=== PATIENT | female | born 1965 | race Caucasian/White ===

== ENCOUNTER 2018-03-21 07:53 | Outpatient (CLI) | payer BC ==
[~2018-03-21] VITALS: Ht 162.6 cm; Wt 52.6 kg
[2018-03-21] MEDS ORDERED: CHOL10003 PO (08:42)
[2018-03-21] MEDS ORDERED: [UNRECOGNIZED DRUG - CODE] PO (08:42)
[2018-03-21] MEDS ORDERED: ARIP10TA9 PO (08:46)
[2018-03-21] MEDS ORDERED: GINK120C PO (08:46)
[2018-03-21] MEDS ORDERED: OMEG-44 PO (08:46)
[2018-03-21] MEDS ORDERED: NABU500T PO (08:46)
[2018-03-21] MEDS ORDERED: LIDOCAINE WITH 8.4% SOD BICARB 3 ML DISP.SYRIN. ONE (08:47)
[2018-03-21] MEDS ORDERED: ESOM40CA47 PO (08:54)
[2018-03-21] MEDS ORDERED: ONDA4SOL PO (08:54)
[2018-03-21] MEDS ORDERED: BLAC200C PO (08:54)
[2018-03-21] MEDS ORDERED: SERT100T PO (08:54)
[2018-03-21 09:02] VITALS: BP 131/71
[2018-03-21] MEDS ORDERED: LIDOCAINE WITH 8.4% SOD BICARB 3 ML DISP.SYRIN. IJ ONE (10:00)
--- NOTE | 2018-03-21 10:47 | NUR ---
discharge instructions reviewed with pt. Pt discharged to home with family.
--- NOTE | 2018-03-22 12:26 | RAD ---
Exam: Fluoroscopic and ultrasound guided left upper extremity midline placement 03/22/2018 12:20 PM .Indication: ATAXIA PORPHYRINE DISORDER Technique: Informed oral and written consent were obtained. The right upper extremity was prepped and draped using sterile barrier technique. All elements of maximal sterile barrier technique including the use of a cap, mask, sterile gown, sterile gloves, large sterile sheet, appropriate hand hygiene, and 2% chlorhexidine for cutaneous antisepsis (or acceptable alternative antiseptic per current guidelines) were followed for this procedure.. Real-time ultrasound demonstrated a patent left cephalic vein. Left upper extremity was prepped and draped in usual sterile fashion. 1% lidocaine used for local anesthesia. Using real-time ultrasound guidance the access needle percutaneously punctured the selected vein. Reference ultrasound images were saved to the medical record. A guidewire was advanced through the needle comment but would not advance beyond the expected region of the left subclavian vein. The aortic position was called, and decision to place a midline made. And a peel-away sheath placed. The catheter was cut to length and inserted through the peel-away sheath. The wire and sheath were removed, and the catheter secured in place, and a sterile dressing was applied. Catheter was found to flush and aspirate normally. No immediate complications are identified. FLUORO TIME: 6.1 MIN Dose area product: 4 Gycm2 Impression: Ultrasound and fluoroscopically guided placement of a left upper extremity midline
== END 2018-03-21 10:49 | disposition home or self-care (01) ==
LOC: INTRAD 07:53
PROVIDERS: ATTEND General Practice
DX: E80.29 Other porphyria (principal); Z88.2 Allergy status to sulfonamides; Z88.5 Allergy status to narcotic agent; Z88.1 Allergy status to other antibiotic agents; Z88.6 Allergy status to analgesic agent; Z88.8 Allergy status to other drugs, medicaments and biological substances
CPT/HCPCS: 36569; 76937; 77001; C1751; C1769; C1892

== ENCOUNTER 2018-03-29 19:10 | Emergency (ER) | payer BC ==
[~2018-03-29] VITALS: Ht 162.6 cm; Wt 55.8 kg
[~2018-03-29 19:10] MED LIST: ARIP10TA9 PO; BLAC200C PO; CHOL10003 PO; ESOM40CA47 PO; GINK120C PO; NABU500T PO; OMEG-44 PO; ONDA4SOL PO; SERT100T PO; [UNRECOGNIZED DRUG - CODE] PO
--- NOTE | 2018-03-29 20:05 | PHYS DOC ---
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 She noticed some hardening of the tissue that has gradually progressed. It wasn't until this evening that she noted the redness which prompted them to come to ED. She denies any pain or tenderness to the area, fevers, chills, chest pain, shortness of breath. Review of Systems Review of Systems Constitutional: Denies fever or chills [] HENT: Denies nasal congestion or sore throat [] Respiratory: Denies cough or shortness of breath [] Cardiovascular: No chest pain, palpitations [] GI: Denies abdominal pain, nausea, vomiting, diarrhea [] : Denies dysuria or hematuria [] Musculoskeletal: Denies back pain or joint pain [] Integument:reports erythema and firmness around midline site in left upper arm[] Complete systems were reviewed and found to be within normal limits, except as documented in this note. Current Medications Current Medications Current Medications Medications (Trade) Dose Ordered Sig/Gold Start Time Stop Time Status Last Admin Dose Admin Cephalexin HCl (Keflex) 500 mg 1X ONCE 03/29/18 23:45 03/29/18 23:46 DC 03/30/18 00:54 500 MG Rivaroxaban (Xarelto) 15 mg 1X ONCE 03/29/18 23:45 03/29/18 23:46 DC 03/29/18 23:52 15 MG Sodium Chloride 1,000 ml @ 1,000 mls/hr 1X ONCE 03/29/18 20:15 03/29/18 21:14 DC 03/29/18 21:36 1,000 MLS/HR Allergies Allergies Allergies Coded Allergies Type Severity Reaction Last Updated Verified Sulfa (Sulfonamide Antibiotics) Allergy Unknown 03/21/18 Yes acetylcysteine Allergy Unknown 03/21/18 Yes adhesive Allergy Unknown 03/21/18 Yes amitriptyline Allergy Unknown 03/21/18 Yes azithromycin Allergy Unknown 03/21/18 Yes bacitracin Allergy Unknown 03/21/18 Yes denosumab Allergy Unknown 03/21/18 Yes fentanyl Allergy Unknown 03/21/18 Yes gabapentin Allergy Unknown 03/21/18 Yes levofloxacin Allergy Unknown 03/21/18 Yes methadone Allergy Unknown 03/21/18 Yes neomycin Allergy Unknown 03/21/18 Yes oxymorphone Allergy Unknown 03/21/18 Yes polymyxin B Allergy Unknown 03/21/18 Yes tramadol Allergy Unknown 03/21/18 Yes trazodone Allergy Unknown 03/21/18 Yes zonisamide Allergy Unknown 03/21/18 Yes Physical Exam Physical Exam Constitutional: well nourished, no acute distress, non-toxic appearance. [] [] Eyes: PERRLA, EOMI, conjunctiva normal, no discharge. [] Neck: Normal range of motion, no tenderness,. [] Cardiovascular:Heart rate regular rhythm, no murmur [] Lungs & Thorax: Bilateral breath sounds clear to auscultation [] Skin: Warm, dry, no erythema, no rash. [] Extremities: moves all, 2+ radial pulse bilaterally, midline in left AC with erythema and fullness streaking up arm following vein concerning for thrombophlebitis [] Neurologic: Alert and oriented X 3, normal sensory function, no focal deficits noted, generalized weakness and uncoordination. [] Psychologic: Affect normal, judgement normal, mood normal. [] Current Patient Data Vital Signs Vital Signs Date Time Temp Pulse Resp B/P (MAP) Pulse Ox O2 Delivery O2 Flow Rate FiO2 03/29/18 22:18 101 20 139/73 (95) 98 Room Air 03/29/18 19:35 98.4 98.4 Lab Values Laboratory Tests Test 03/29/18 21:25 White Blood Count 6.3 x10^3/uL (4.0-11.0) Red Blood Count 4.08 x10^6/uL (3.50-5.40) Hemoglobin 11.7 g/dL (12.0-15.5) L Hematocrit 35.4 % (36.0-47.0) L Mean Corpuscular Volume 87 fL (79-100) Mean Corpuscular Hemoglobin 29 pg (25-35) Mean Corpuscular Hemoglobin Concent 33 g/dL (31-37) Red Cell Distribution Width 16.0 % (11.5-14.5) H Platelet Count 189 x10^3/uL (140-400) Neutrophils (%) (Auto) 48 % (31-73) Lymphocytes (%) (Auto) 37 % (24-48) Monocytes (%) (Auto) 6 % (0-9) Eosinophils (%) (Auto) 8 % (0-3) H Basophils (%) (Auto) 1 % (0-3) Neutrophils # (Auto) 3.1 x10^3uL (1.8-7.7) Lymphocytes # (Auto) 2.3 x10^3/uL (1.0-4.8) Monocytes # (Auto) 0.4 x10^3/uL (0.0-1.1) Eosinophils # (Auto) 0.5 x10^3/uL (0.0-0.7) Basophils # (Auto) 0.1 x10^3/uL (0.0-0.2) Prothrombin Time 12.1 SEC (11.7-14.0) Prothrombin Time INR 0.9 (0.8-1.1) PTT 26 SEC (24-38) Sodium Level 142 mmol/L (136-145) Potassium Level 3.9 mmol/L (3.5-5.1) Chloride Level 103 mmol/L (98-107) Carbon Dioxide Level 28 mmol/L (21-32) Anion Gap 11 (6-14) Blood Urea Nitrogen 13 mg/dL (7-20) Creatinine 0.7 mg/dL (0.6-1.0) Estimated GFR (Cockcroft-Gault) 87.2 BUN/Creatinine Ratio 19 (6-20) Glucose Level 160 mg/dL (70-99) H Lactic Acid Level 2.0 mmol/L (0.4-2.0) Calcium Level 9.0 mg/dL (8.5-10.1) Magnesium Level 1.9 mg/dL (1.8-2.4) Total Bilirubin 0.2 mg/dL (0.2-1.0) Aspartate Amino Transferase (AST) 22 U/L (15-37) Alanine Aminotransferase (ALT) 44 U/L (14-59) Alkaline Phosphatase 72 U/L (46-116) Total Protein 6.5 g/dL (6.4-8.2) Albumin 3.5 g/dL (3.4-5.0) Albumin/Globulin Ratio 1.2 (1.0-1.7) Laboratory Tests 03/29/18 21:25 Laboratory Tests 03/29/18 21:25 EKG EKG [] Radiology/Procedures Radiology/Procedures PROCEDURE: VENOUS UPPER EXTREMITY LEFT Indication: Pain and redness in the left upper arm. Recent PICC line removed just prior to exam due to TECHNIQUE: Grayscale, color Doppler and spectral waveform images of the left upper extremity deep veins COMPARISON: None FINDINGS: The jugular vein is compressible and patent. The subclavian vein is patent. Hypoechoic filling defect is seen in the cephalic vein in the upper arm without evidence of blood flow. The cephalic vein distal to the insertion of the PICC line is compressible. The axillary vein, brachial vein, basilic vein are compressible and demonstrates evidence of blood flow. The radial and ulnar veins are patent. IMPRESSION: 1. Thrombosis of the cephalic vein in the arm. 2. Rest of the deep veins are patent without DVT. Findings discussed with Dr. Quiñones on 03/29/2018 at 9:27 PM. Electronically signed by: Tramaine Mckeon DO (03/29/2018 9:27 PM) [facility] [place] DICTATED and SIGNED BY: TRAMAINE MCKEON DO DATE: 03/29/182122 Course & Med Decision Making Course & Med Decision Making Pertinent Labs and Imaging studies reviewed. (See chart for details) Patient presented with concerns regarding skin changes around her midline that was placed a week ago. On exam there was erythema and fullness concerning for thrombophlebitis. Midline was removed and blood cultures obtained. Ultrasound showed thrombosis of the cephalic vein without evidence of DVT. Attempt to contact her family physician, Dr. Dempsey, unsuccessful. She received first dose of antibiotic in ED along with Xarelto. Patient discharged with prescription for antibiotics and two weeks worth of Xarelto. Dragon Disclaimer Dragon Disclaimer This electronic medical record was generated, in whole or in part, using a voice recognition dictation system. Departure Departure Impression: Primary Impression: Acute CVA (cerebrovascular accident) Disposition: 09 ADMITTED INPATIENT Condition: STABLE Referrals: DIEGO RASHID DO (PCP) Patient Instructions: Phlebitis, [id number] Scripts Rivaroxaban (XARELTO) 15 Mg Tablet 15 MG PO BID for 14 Days, #28 TAB Prov: PACNHITO QUIÑONES DO 03/29/18 Cephalexin (KEFLEX) 500 Mg Capsule 500 MG PO QID for 7 Days, #28 CAP Prov: PANCHITO QUIÑONES DO 03/29/18 PANCHITO QUIÑONES DO Mar 29, 2018 20:05
[2018-03-29] MEDS ORDERED: IV NORMAL SALINE 1000ML BAG 1,000 ML IV ONE (20:15)
--- NOTE | 2018-03-29 21:30 | RAD ---
Indication: Pain and redness in the left upper arm. Recent PICC line removed just prior to exam due to TECHNIQUE: Grayscale, color Doppler and spectral waveform images of the left upper extremity deep veins COMPARISON: None FINDINGS: The jugular vein is compressible and patent. The subclavian vein is patent. Hypoechoic filling defect is seen in the cephalic vein in the upper arm without evidence of blood flow. The cephalic vein distal to the insertion of the PICC line is compressible. The axillary vein, brachial vein, basilic vein are compressible and demonstrates evidence of blood flow. The radial and ulnar veins are patent. IMPRESSION: 1. Thrombosis of the cephalic vein in the arm. 2. Rest of the deep veins are patent without DVT. Findings discussed with Dr. Moreau on 03/29/2018 at 9:27 PM. Electronically signed by: Tramaine Mckeon DO (03/29/2018 9:27 PM) [facility]
[2018-03-29 21:40] LABS: BASO # 0.1 x10^3/uL (0.0-0.2); BASO % 1 % (0-3); EOS # 0.5 x10^3/uL (0.0-0.7); EOS % 8 % (0-3); HEMATOCRIT 35.4 % (36.0-47.0); HEMOGLOBIN 11.7 g/dL (12.0-15.5); LYMPH # 2.3 x10^3/uL (1.0-4.8); LYMPH % 37 % (24-48); MEAN CORPUSCULAR HEMOGLOBIN 29 pg (25-35); MEAN CORPUSCULAR HGB CONC 33 g/dL (31-37); MEAN CORPUSCULAR VOLUME 87 fL (79-100); MONO # 0.4 x10^3/uL (0.0-1.1); MONO % 6 % (0-9); NEUT # 3.1 x10^3uL (1.8-7.7); NEUT % 48 % (31-73); PLATELET COUNT 189 x10^3/uL (140-400); RED BLOOD COUNT 4.08 x10^6/uL (3.50-5.40); WHITE BLOOD COUNT 6.3 x10^3/uL (4.0-11.0)
[2018-03-29 21:49] LABS: PROTHROMBIN TIME PATIENT 12.1 SEC (11.7-14.0)
[2018-03-29 21:52] LABS: CREATININE 0.7 mg/dL (0.6-1.0); GFR 87.2; POTASSIUM 3.9 mmol/L (3.5-5.1)
[2018-03-29 21:58] LABS: ALBUMIN 3.5 g/dL (3.4-5.0); ALBUMIN/GLOBULIN RATIO 1.2 (1.0-1.7); MAGNESIUM 1.9 mg/dL (1.8-2.4); TOTAL BILIRUBIN 0.2 mg/dL (0.2-1.0); TOTAL PROTEIN 6.5 g/dL (6.4-8.2)
[2018-03-29 22:18] VITALS: BP 139/73
[2018-03-29] MEDS ORDERED: CEPH-264 PO (23:39)
[2018-03-29] MEDS ORDERED: RIVA15TA PO (23:39)
[2018-03-29] MEDS ORDERED: CEPHALEXIN 250 MG CAPSULE. PO ONE (23:45)
[2018-03-29] MEDS ORDERED: RIVAROXABAN 15 MG TABLET. PO ONE (23:45)
== END 2018-03-30 00:53 | disposition home or self-care (01) ==
LOC: ER 19:10
DX: I63.9 Cerebral infarction, unspecified (principal); I82.612 Acute embolism and thrombosis of superficial veins of left upper extremity; Z88.2 Allergy status to sulfonamides; Z88.8 Allergy status to other drugs, medicaments and biological substances; Z88.1 Allergy status to other antibiotic agents; Z88.5 Allergy status to narcotic agent
CPT/HCPCS: 36415; 80053; 83605; 83735; 85025; 85610; 85730; 87040; 87071; 87075; 93971; 99284; J7030